=== PATIENT | female | born 1960 | race Caucasian/White ===

== ENCOUNTER → 2017-02-11 | Outpatient (CLI) | payer BC ==
--- NOTE | ~2017-02-11 | MR21 ---
[facility]. [facility] A Service of [facility] RADIOLOGY TEXT RESULTS PATIENT: ABENA VARGAS LOCATION: [facility] : 62 UNIT #: [id number] AGE: [address]: Livier Ball MD SEX: F ORDER DR: [id number] [address] [address] [id number] O MR#: [id number] Acc #: [id number] NAME: ABENA VARGAS : 1960 SEX: F STUDY DATE/TIME: 02/11/2017 8:55 UNIT: [facility] ROOM: STUDY DESCRIPTION: MR Breast WWo Contrast Solo Attending Physician: Livier Ball M.D. Referring Physician: Livier Ball M.D. Ordering Physician: Livier Ball M.D. Primary Care Physician: Bautista [facility]cher [facility] REPORT This report is preliminary unless electronic signature is present. EXAM 1. MRI of bilateral breasts with and without contrast. 2. Post processing including computer algorithm analysis Of MRI data for lesion detection/characterization, pharmacokinetic analysis, with further physician review for interpretation of breast MRI. COMPARISON Breast MRI exams dated January 24, 2015, December 24, 2012, December 13, 2011, November 30, 2010, and December 14, 2008. INDICATION High-risk breast cancer screening. TECHNIQUE Axial bilateral T1, STIR, T1 fat saturation precontrast and T1 fat saturation postcontrast dynamic sequences were obtained in addition to sagittal bilateral VIBE precontrast and VIBE postcontrast sequences. Axial post contrast digital subtraction series were provided in addition to 3-D MIPs of each breast. CONTRAST 20 mL MultiHance IV. 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 Additional family history including a maternal aunt with premenopausal breast cancer. FINDINGS There is scattered fibroglandular tissue. There is minimal bilateral background breast enhancement. There are scattered subcentimeter nonenhancing cysts in both breasts. There are no enhancing masses or STS. [facility] A Service of [facility] RADIOLOGY TEXT RESULTS PATIENT: ABENA VARGAS [id number] : [birth year] UNIT #: [id number] AGE: [address]: Livier Ball MD SEX: F ORDER DR: areas of suspicious non-masslike enhancement in the right breast. As compared to January 2015, there is a stable oval smooth mass with benign enhancement kinetics in the posterior third of the central left breast measuring 5 mm x 4 mm x 11 mm. This is consistent with a benign fibroadenoma. No axillary or internal mammary adenopathy. No enhancing lesions within the sternum or visualized liver. IMPRESSION No MR evidence of malignancy in either breast. Continued risk appropriate breast cancer screening is recommended. BIRADS Final Assessment Category: 2 - Benign Findings Dictated by... Gunnar Cazares M.D. THIS IS AN ELECTRONICALLY VERIFIED REPORT Gunnar Cazares M.D. at 02/24/2017 9:47 AM Hakan TD: 02/18/2017 09:35 JOB #: [id number] MRI CENTER REPORT Page 1 of 1
--- NOTE | ~2017-02-11 | MY11 ---
[facility] A Service of [facility] RADIOLOGY TEXT RESULTS PATIENT: ABENA VARGAS LOCATION: [facility] : 62 UNIT #: [id number] AGE: [address]: Livier Ball MD SEX: F ORDER DR: [id number] [address] [address] [id number] O MR#: [id number] Acc #: [id number] NAME: ABENA VARGAS : 1960 SEX: F STUDY DATE/TIME: 02/11/2017 10:04 UNIT: [facility] ROOM: STUDY DESCRIPTION: MY Mammogram Screening Dig Solo Attending Physician: Livier Ball M.D. Referring Physician: Livier Ball M.D. Ordering Physician: Livier Ball M.D. Primary Care Physician: Js Belcher M.D. MEDICAL IMAGING REPORT This report is preliminary unless electronic signature is present. EXAM Digital screening mammogram, 02/11/17, [facility]. HISTORY 56-year-old woman with previous right excisional biopsy/lumpectomy for lobular carcinoma in situ, age 48. Additional positive family history, maternal aunt in her 40s. COMPARISON Comparison mammograms date to 04/27/08. Breast MRIs date to 12/14/08. Most recent screening mammogram 01/29/16. Scheduled breast MRI 02/11/17. FINDINGS Digital imaging of each breast was completed utilizing screening protocol. Review includes FDA-approved CAD device. Biopsy marker is placed on the right breast. Breast parenchyma is heterogeneously dense and stable. Image-guided biopsy marker projects inner hemisphere right breast middle third. Adjacent breast parenchyma is stable. There is a mild postsurgical deformity projecting 12 o'clock axis right breast posterior third. I see no interval occurring breast mass. There are no suspicious microcalcifications and no new architectural distortion. Refer to this year's breast MRI findings, given the patient's history. IMPRESSION Stable benign mammogram. Annual screening recommended. Refer to this year's breast MRI report. Patients over the age of 40 are entered into a reminder system with target due date for the next mammogram. A result letter will also be sent to the patient. [facility] A Service of [facility] RADIOLOGY TEXT RESULTS PATIENT: ABENA VARGAS LOCATION: [facility] : 62 UNIT #: [id number] AGE: [address]: Livier Ball MD SEX: F ORDER DR: BIRADS: 2 Benign finding. Dictated by... Prasanna Ortiz M.D. THIS IS AN ELECTRONICALLY VERIFIED REPORT Prasanna Ortiz M.D. at 02/11/2017 2:42 PM FATEMEH/[email or web address] TD: 02/11/2017 14:19 JOB #: [id number] MEDICAL IMAGING REPORT Page 1 of 1
== END | disposition home or self-care (01) ==
LOC: SMRI 02-04 08:45
DX: Z12.31 Encounter for screening mammogram for malignant neoplasm of breast (principal); Z12.39 Encounter for other screening for malignant neoplasm of breast; Z98.890 Other specified postprocedural states; Z87.2 Personal history of diseases of the skin and subcutaneous tissue
CPT/HCPCS: 0159T; A9581; C8908; G0202